=== PATIENT | male | born 1945 | race Caucasian/White ===

== ENCOUNTER 2017-08-23 07:10 | Emergency (ER) | payer MEDICARE ==
[~2017-08-23] VITALS: Ht 182.9 cm; Wt 93.0 kg
[2017-08-23] MEDS ORDERED: LISI-170 PO (07:39)
[2017-08-23] MEDS ORDERED: WARF5TAB PO (07:39)
[2017-08-23 07:42] LABS: BASOPHILS # (AUTO) 0.05 x10^3/uL (0-0.1); BASOPHILS % (AUTO) 0 % (0-1); EOSINOPHILS # (AUTO) 0.04 x10^3/uL (0-0.4); EOSINOPHILS % (AUTO) 0 % (1-7); LYMPHOCYTES # (AUTO) 2.01 x10^3/uL (1-3.4); LYMPHOCYTES % (AUTO) 18 % (22-44); MD NO; MEAN CORPUSCULAR HEMOGLOBIN 31.4 pg (27.5-34.5); MEAN CORPUSCULAR HGB CONC 33.3 g/dL (33.2-36.2); MEAN CORPUSCULAR VOLUME 94.4 fL (81-97); MEAN PLATELET VOLUME 6.7 fL (7.4-10.4); MONOCYTES % (AUTO) 7 % (2-9); NEUTROPHILS # (AUTO) 8.11 x10^3/uL (1.8-6.8); NEUTROPHILS % (AUTO) 74 % (42-75); PLATELET COUNT 278 x10^3/uL (130-400); RED BLOOD COUNT 5.23 x10^6/uL (4.38-5.82); RED CELL DISTRIBUTION WIDTH 13.9 % (9.4-14.8)
[2017-08-23 07:53] LABS: ALANINE AMINOTRANSFERASE 21 U/L (12-78); ALBUMIN 3.7 g/dL (3.4-5.0); ANION GAP 5 mmol/L (5-15); CALCIUM 9.2 mg/dL (8.5-10.1); CHLORIDE 105 mmol/L (98-107); CREATININE 0.92 mg/dL (0.7-1.3)
[2017-08-23 07:56] LABS: ALKALINE PHOSPHATASE 80 U/L (45-117); BILIRUBIN,TOTAL 0.6 mg/dL (0.2-1.0); TOTAL PROTEIN 7.6 g/dL (6.4-8.2)
[2017-08-23 08:09] LABS: INTERNATIONAL NORMALIZED RATIO 1.48 (0.93-1.1); PROTHROMBIN TIME 15.3 Seconds (9.6-11.5)
[2017-08-23 10:00] VITALS: BP 140/78
[2017-08-23 11:31] LABS: MICROSCOPIC INDICATED
[2017-08-23 11:32] LABS: CULTURE INDICATED? YES
== END 2017-08-23 10:50 | disposition home or self-care (01) ==
LOC: ED 10:45
DX: L03.116 Cellulitis of left lower limb (principal); Z59.0 Homelessness; Z85.51 Personal history of malignant neoplasm of bladder; Z86.711 Personal history of pulmonary embolism
CPT/HCPCS: 36415; 80053; 81001; 85025; 85610; 87086; 99284